=== PATIENT | female | born 1960 | race Caucasian/White ===

== ENCOUNTER 2022-12-19 06:33 | Day surgery (SDC) | payer MEDICAID ==
[2022-12-19] MEDS ORDERED: Lactated Ringers 1,000 ML IV SCH (07:00)
[2022-12-19] MEDS ORDERED: Propofol 200 MG/20 ML SDV ONE (07:25)
[2022-12-19] MEDS ORDERED: fentaNYL 100 MCG/2 ML SDV ONE (07:25)
[2022-12-19] MEDS ORDERED: Midazolam 1 MG/ML 2 ML SDV ONE (07:25)
== END 2022-12-19 09:19 | disposition home or self-care (01) ==
LOC: JP.SDS 06:33
PROVIDERS: ATTEND Student in an Organized Health Care Education/Training Program
DX: Z12.11 Encounter for screening for malignant neoplasm of colon (principal); D12.6 Benign neoplasm of colon, unspecified; E66.9 Obesity, unspecified; Z79.899 Other long term (current) drug therapy; Z91.040 Latex allergy status; Z68.25 Body mass index [BMI] 25.0-25.9, adult
CPT/HCPCS: 88305; J2250; J2704; J3010; J7120